=== PATIENT | male | born 1955 | race Caucasian/White ===

== ENCOUNTER 2021-08-27 19:42 | Inpatient (IN) | payer MEDICARE, MEDICAID ==
[2021-08-27] MEDS ORDERED: Guaifenesin DM 100-10/5 ML UDCUP PO PRN (21:28)
[2021-08-27] MEDS ORDERED: Ondansetron PF 4 MG/2 ML Vial IVP PRN (21:28)
[2021-08-27] MEDS ORDERED: Senokot S 8.6-50 MG TAB PO PRN (21:28)
[2021-08-27] MEDS ORDERED: Calcium Carbonate 500 MG ChewTAB PO PRN (21:28)
[2021-08-27] MEDS ORDERED: Ventolin HFA Inhaler 60 PUFF INHALER INH PRN (21:33)
[2021-08-27 21:42] LABS: Phosphorus 4.2 mg/dL (2.3-4.7)
[2021-08-27 21:44] LABS: ALT (SGPT) 16 U/L (8-55); AST (SGOT) 38 U/L (5-34); Alkaline Phosphatase 66 U/L (40-110); Anion Gap 14 mmol/L (10-20); BUN (Urea Nitrogen) 25 mg/dL (8.4-25.7); Bilirubin, Total 0.5 mg/dL (0.2-1.2); CK (CPK) 48 U/L (30-200); Calc. Creatinine Clearance 0 mL/min (70-130); Calcium 8.8 mg/dL (7.8-10.44); Carbon Dioxide 25 mmol/L (23-31); Chloride 100 mmol/L (98-107); Estimated GFR 72; Globulin 3.8 g/dL (2.4-3.5); Glucose 186 mg/dL (80-115); Magnesium 2.4 mg/dL (1.6-2.6); Potassium 3.6 mmol/L (3.5-5.1); Protein, Total 6.8 g/dL (5.8-8.1); Sodium 135 mmol/L (136-145)
[2021-08-27 21:45] LABS: #Monocytes 0.2 10x3/uL (0.0-1.1); #Neutrophils 3.7 10x3/uL (1.5-8.4); %Basophils 0.2 % (0.0-2.0); %Lymphocytes 9.4 % (18.0-47.0); %Monocytes 3.7 % (0.0-10.0); Mean Corpuscular HGB CONC 30.9 g/dL (32.0-36.0); Mean Corpuscular Hemoglobin 18.8 pg (27.0-33.0); Mean Corpuscular Volume 60.8 fl (81.2-95.1); Red Blood Cell (RBC) Count 4.79 10x6/uL (4.32-5.72); White Blood Cell (WBC) Count 4.3 10x3/uL (3.5-10.5)
[2021-08-27 21:46] LABS: Platelet Count 134 10x3/uL (150-450)
[2021-08-27 21:47] LABS: MDiff Complete? YES
[2021-08-27 22:07] LABS: Band 16 % (5-11); Lymphocytes 5 % (21-51); Monocytes 5 % (0-10); Neutrophil 74 % (42-75)
[2021-08-27 22:09] LABS: Elliptocytes SLIGHT = 2-5 cells (100X) (0-1/hpf); Microcytosis MODERATE=15-30 cells (100X) (0-5/hpf); Ovalocytes SLIGHT = 2-5 cells (100X) (0-1/hpf)
[2021-08-27 22:10] LABS: Platelet Morphology Comment Appears Adequate
[2021-08-27 22:12] LABS: Hypochromia SLIGHT = 6-15 cells (100X) (0-5/hpf)
[2021-08-27 22:12] LABS: Lactic Acid 1.1 mmol/L (0.5-2.2)
[2021-08-27 22:14] LABS: Reflex for Review?? YES
[2021-08-27 22:16] LABS: Iron 8 ug/dL (65-175); Iron Binding Capacity, Total 363 mcg/dL (261-462)
[2021-08-27 22:20] VITALS: BMI 28.0
[2021-08-27] MEDS ORDERED: Pantoprazole 40 MG VIAL IVP SCH (22:30)
[2021-08-27] MEDS ORDERED: methylPREDNISolone Sod Succ/PF 125 MG/2 ML VIAL IVP SCH (22:30)
[2021-08-27] MEDS ORDERED: cefTRIAXone\\ROCEPHIN 1 GM in Sodium Chloride 0.9% 100 ML IVPB SCH (22:30)
[2021-08-27 23:59] LABS: Bilirubin Neg (Negative); Blood, Urine 250 (Negative); Clarity Slightly Cloudy (Clear); Glucose, Urine (Dipstick) Normal (Negative); Ketone, Urine Negative (Negative); Leukocyte 500 (Negative); Nitrite Negative (Negative); Protein, Urine (Dipstick) 100 mg/dl (Neg-Trace)
[2021-08-28 00:03] LABS: Urine Culture Reflex No No
[2021-08-28 00:07] LABS: Amphetamine Detected (NotDetected); Barbiturates Screen Not Detected (NotDetected); Benzodiazepine Screen Not Detected (NotDetected); Cocaine Metabolite Screen Not Detected (NotDetected); Methadone Not Detected (NotDetected); Methamphetamine Detected (NotDetected); Opiate Screen Not Detected (NotDetected); Oxycodone Screen Not Detected (NotDetected); Phencyclidine (PCP) Not Detected (NotDetected); THC/Cannabinoid Screen Not Detected (NotDetected); Tricyclic Screen Not Detected (NotDetected)
[2021-08-28 00:13] LABS: Bacteria/HPF 3+ HPF (None Seen); RBC/HPF 0-3 HPF (0-3); Squamous Epithelial 0-3 HPF (0-3); Transitional Epithelial 0-3 HPF (None Seen)
[2021-08-28 01:23] LABS: Actual Bicarbonate (HCO3a) 25.6 mEq/L (22-28); Base Excess (BEa) 1.8 mEq/L (-2.0 to +3.0); CO2 Tension 36.8 mmHg (35.0-45.0); Calcium, Ionized (arterial) 1.19 mmol/L (1.12-1.30); Carboxyhemoglobin (COHb) 0.5 gm% (0.0-3.0); Critical Notified By: CP.PH; Hemoglobin (Hb) 9.4 g/dL (14.0-18.0); O2 Tension (PaO2), arterial 89.6 mmHg (> 80.0); Potassium - ABG Lab 3.7 mmol/L (3.70-5.30); Puncture Site RRA; RapidComm Collect By CP.PH; pH, Arterial 7.46 (7.35-7.45)
[2021-08-28 05:37] LABS: Hemoglobin 9.1 g/dL (13.5-17.5); Mean Corpuscular HGB CONC 30.8 g/dL (32.0-36.0); Mean Corpuscular Hemoglobin 18.6 pg (27.0-33.0); Mean Corpuscular Volume 60.5 fl (81.2-95.1); Platelet Count 138 10x3/uL (150-450); RBC Distribution Width 21.1 % (11.5-14.5); Red Blood Cell (RBC) Count 4.88 10x6/uL (4.32-5.72); White Blood Cell (WBC) Count 4.9 10x3/uL (3.5-10.5)
[2021-08-28 05:48] LABS: MDiff Complete? YES
[2021-08-28 05:51] LABS: Band 18 % (5-11); Lymphocytes 10 % (21-51); Monocytes 1 % (0-10); Neutrophil 71 % (42-75)
[2021-08-28 05:52] LABS: Elliptocytes SLIGHT = 2-5 cells (100X) (0-1/hpf); Ovalocytes SLIGHT = 2-5 cells (100X) (0-1/hpf)
[2021-08-28 05:53] LABS: Microcytosis MODERATE=15-30 cells (100X) (0-5/hpf); Platelet Morphology Comment Appears Adequate
[2021-08-28 06:12] LABS: Thyroid Stimulating Hormone 0.5937 uIU/mL (0.35-4.94)
[2021-08-28 06:13] LABS: Anion Gap 13 mmol/L (10-20); BUN (Urea Nitrogen) 27 mg/dL (8.4-25.7); Calc. Creatinine Clearance 90 mL/min (70-130); Calcium 8.7 mg/dL (7.8-10.44); Carbon Dioxide 27 mmol/L (23-31); Cardiac Risk 9.3 (Less than 4.5); Chloride 102 mmol/L (98-107); Cholesterol 93 mg/dl (< 200 Desired); Estimated GFR 94; Glucose 145 mg/dL (80-115); HDL Cholesterol 10 mg/dL (>60 Neg Risk); LDL Cholesterol, Calculated 64 mg/dL; Sodium 138 mmol/L (136-145); Triglycerides 93 mg/dL (Less than 150)
[2021-08-28] MEDS: Mometasone/Formoterol 200/5 60 PUFF INH SCH ×2 (07:30→20:35)
[2021-08-28 08:53] LABS: Free T4 (Free Thyroxine) 0.9 ng/dL (0.70-1.48)
[2021-08-28] MEDS ORDERED: cefTRIAXone\\ROCEPHIN 1 GM in Sodium Chloride 0.9% 100 ML IVPB SCH (09:00)
[2021-08-28] MEDS ORDERED: Metoprolol Tartrate 25 MG TAB PO SCH (09:00)
[2021-08-28] MEDS: Aspirin 81 mg Enteric Coated Tablet PO SCH (09:31)
[2021-08-28] MEDS: Ferrous Sulfate 325 MG TAB PO SCH (09:31)
[2021-08-28] MEDS ORDERED: Simethicone Chewable 80 MG TAB PO PRN (09:34)
[2021-08-28] MEDS ORDERED: Carvedilol 6.25 MG TAB PO SCH (10:00)
[2021-08-28 12:47] LABS: Hemoglobin A1c 5.8 % (4.0-6.0)
[2021-08-28] MEDS: Carvedilol 6.25 MG TAB PO SCH (17:43)
[2021-08-28] MEDS: Pantoprazole 40 MG VIAL IVP SCH (21:11)
[2021-08-29 06:04] LABS: Hemoglobin 8.3 g/dL (13.5-17.5); Mean Corpuscular HGB CONC 30.4 g/dL (32.0-36.0); Mean Corpuscular Hemoglobin 18.5 pg (27.0-33.0); Mean Corpuscular Volume 60.9 fl (81.2-95.1); Platelet Count 175 10x3/uL (150-450); RBC Distribution Width 20.7 % (11.5-14.5); Red Blood Cell (RBC) Count 4.48 10x6/uL (4.32-5.72); White Blood Cell (WBC) Count 11.3 10x3/uL (3.5-10.5)
[2021-08-29 06:06] LABS: MDiff Complete? YES
[2021-08-29 06:10] LABS: ALT (SGPT) 17 U/L (8-55); AST (SGOT) 55 U/L (5-34); Albumin 2.7 g/dL (3.4-4.8); Alkaline Phosphatase 65 U/L (40-110); Anion Gap 15 mmol/L (10-20); BUN (Urea Nitrogen) 34 mg/dL (8.4-25.7); Bilirubin, Direct 0.2 mg/dL (0.1-0.3); Bilirubin, Total 0.3 mg/dL (0.2-1.2); Calc. Creatinine Clearance 86 mL/min (70-130); Calcium 8.4 mg/dL (7.8-10.44); Carbon Dioxide 25 mmol/L (23-31); Cardiac Risk 7.5 (Less than 4.5); Chloride 103 mmol/L (98-107); Cholesterol 98 mg/dl (< 200 Desired); Estimated GFR 91; Glucose 120 mg/dL (80-115); HDL Cholesterol 13 mg/dL (>60 Neg Risk); Iron 16 ug/dL (65-175); Iron Binding Capacity, Total 330 mcg/dL (261-462); LDL Cholesterol, Calculated 65 mg/dL; Magnesium 2.3 mg/dL (1.6-2.6); Potassium 4.1 mmol/L (3.5-5.1); Protein, Total 6.1 g/dL (5.8-8.1); Sodium 139 mmol/L (136-145); Triglycerides 101 mg/dL (Less than 150)
[2021-08-29 06:34] LABS: Band 14 % (5-11); Lymphocytes 4 % (21-51); Monocytes 8 % (0-10); Neutrophil 74 % (42-75)
[2021-08-29 06:36] LABS: Elliptocytes MODERATE= 6-15 cells (100X) (0-1/hpf); Hypochromia SLIGHT = 6-15 cells (100X) (0-5/hpf); Microcytosis MODERATE=15-30 cells (100X) (0-5/hpf)
[2021-08-29 06:37] LABS: Platelet Morphology Comment Appears Adequate
[2021-08-29] MEDS: Mometasone/Formoterol 200/5 60 PUFF INH SCH ×2 (06:46→21:55)
[2021-08-29] MEDS ORDERED: Lisinopril 5 MG TAB PO SCH (09:00)
[2021-08-29] MEDS: cefTRIAXone\\ROCEPHIN 2 GM in Sodium Chloride 0.9% 100 ML IVPB SCH (09:59)
[2021-08-29] MEDS: Aspirin 81 mg Enteric Coated Tablet PO SCH (09:59)
[2021-08-29] MEDS: Ferrous Sulfate 325 MG TAB PO SCH (09:59)
[2021-08-29] MEDS: Carvedilol 6.25 MG TAB PO SCH ×2 (09:59→18:04)
[2021-08-29] MEDS: Acetaminophen 325 MG TAB PO PRN ×2 (13:42→23:48)
[2021-08-29] MEDS ORDERED: Atorvastatin Calcium 40 MG TAB PO SCH (21:00)
[2021-08-29] MEDS: Pantoprazole 40 MG VIAL IVP SCH (21:37)
[2021-08-29] MEDS ORDERED: diphenhydrAMINE 50 MG CAP PO SCH (23:00)
[2021-08-30 04:40] LABS: Anion Gap 13 mmol/L (10-20); BUN (Urea Nitrogen) 32 mg/dL (8.4-25.7); Calc. Creatinine Clearance 64 mL/min (70-130); Calcium 8.2 mg/dL (7.8-10.44); Carbon Dioxide 26 mmol/L (23-31); Chloride 104 mmol/L (98-107); Estimated GFR 63; Glucose 95 mg/dL (80-115); Magnesium 2.2 mg/dL (1.6-2.6); Potassium 3.7 mmol/L (3.5-5.1); Sodium 139 mmol/L (136-145)
[2021-08-30 05:16] LABS: Hemoglobin 8.5 g/dL (13.5-17.5); Mean Corpuscular HGB CONC 31.6 g/dL (32.0-36.0); Mean Corpuscular Hemoglobin 19.1 pg (27.0-33.0); Mean Corpuscular Volume 60.3 fl (81.2-95.1); RBC Distribution Width 20.8 % (11.5-14.5); Red Blood Cell (RBC) Count 4.46 10x6/uL (4.32-5.72); White Blood Cell (WBC) Count 6.9 10x3/uL (3.5-10.5)
[2021-08-30 06:18] LABS: MDiff Complete? YES; Platelet Count 170 10x3/uL (150-450)
[2021-08-30 06:20] LABS: Anisocytosis SLIGHT = 6-15 cells (100X) (0-5/hpf); Elliptocytes SLIGHT = 2-5 cells (100X) (0-1/hpf); Hypochromia SLIGHT = 6-15 cells (100X) (0-5/hpf); Platelet Morphology Comment Appears Adequate
[2021-08-30 06:25] LABS: Band 18 % (5-11); Lymphocytes 16 % (21-51); Monocytes 7 % (0-10); Neutrophil 59 % (42-75)
[2021-08-30] MEDS: Mometasone/Formoterol 200/5 60 PUFF INH SCH (07:38)
[2021-08-30] MEDS ORDERED: Lisinopril 10 MG TAB PO SCH (09:00)
[2021-08-30] MEDS ORDERED: Enoxaparin Sodium 40 MG/0.4 ML SYRINGE SC SCH (09:00)
[2021-08-30] MEDS: Aspirin 81 mg Enteric Coated Tablet PO SCH (09:09)
[2021-08-30] MEDS: Ferrous Sulfate 325 MG TAB PO SCH (09:09)
[2021-08-30] MEDS: Carvedilol 6.25 MG TAB PO SCH ×2 (09:09→17:52)
[2021-08-30] MEDS: cefTRIAXone\\ROCEPHIN 2 GM in Sodium Chloride 0.9% 100 ML IVPB SCH (09:16)
[2021-08-30] MEDS ORDERED: HYDROcodone/Acetaminophen 5/325 mg Tablet PO PRN (09:25)
[2021-08-30] MEDS ORDERED: Diphenoxylate HCl/Atropine Tablet PO PRN (11:45)
[2021-08-30] MEDS ORDERED: Loperamide HCl 2 MG CAP PO PRN (11:45)
[2021-08-30 16:22] VITALS: BP 137/73; TEMP 97.8
[2021-08-30] MEDS ORDERED: Atorvastatin Calcium 40 MG TAB PO SCH (21:00)
== END 2021-08-30 18:05 | disposition home or self-care (01) | DRG 291 ==
LOC: OBSVTOIN 19:42 → INTOOBSV 19:42 → CSHTELE 19:42
PROVIDERS: ADMIT Student in an Organized Health Care Education/Training Program; ATTEND Family Medicine
DX: I11.0 Hypertensive heart disease with heart failure (principal); I50.23 Acute on chronic systolic (congestive) heart failure; N39.0 Urinary tract infection, site not specified; R78.81 Bacteremia; B96.20 Unspecified Escherichia coli [E. coli] as the cause of diseases classified elsewhere; I25.10 Atherosclerotic heart disease of native coronary artery without angina pectoris; I73.9 Peripheral vascular disease, unspecified; J44.9 Chronic obstructive pulmonary disease, unspecified; F15.90 Other stimulant use, unspecified, uncomplicated; D50.9 Iron deficiency anemia, unspecified; D69.6 Thrombocytopenia, unspecified; K40.90 Unilateral inguinal hernia, without obstruction or gangrene, not specified as recurrent; R79.89 Other specified abnormal findings of blood chemistry; F17.210 Nicotine dependence, cigarettes, uncomplicated; R19.7 Diarrhea, unspecified; Z20.822 Contact with and (suspected) exposure to COVID-19; Z71.51 Drug abuse counseling and surveillance of drug abuser; Z90.49 Acquired absence of other specified parts of digestive tract; Z71.6 Tobacco abuse counseling
CPT/HCPCS: 36415; 36416; 36600; 70450; 76705; 80048; 80061; 80076; 80306; 80307; 81001; 82274; 82728; 82805; 83036; 83540; 83550; 83605; 83735; 83880; 84100; 84439; 84443; 85025; 85046; 85060; 87040; 87077; 87081; 87086; 87149; 87186; 87430; 87804; 87880; 93005; 93010; 93306; 94664; 94760; C9113; J0696; J1650; J2405; J2930; J3490